=== PATIENT | male | born 1970 | race Caucasian/White ===

== ENCOUNTER 2017-06-14 13:08 | Emergency (ER) | payer OTHER ==
[2017-06-14 13:17] VITALS: BMI 38.0
[2017-06-14] MEDS ORDERED: SODIUM CHLORIDE 1,000 ML IV STA (14:05)
--- NOTE | 2017-06-14 14:12 | PDOC ---
History of Present Illness - General Chief Complaint: Pain Stated Complaint: PAIN/ LT SIDE, ABD Time Seen by Provider: 06/14/17 13:39 History Source: Patient - History of Present Illness Initial Comments: 06/14/17 14:11 47m with h/o GERD presents to the ED for non-radiating LLQ abdominal pain that started a week ago associated with brown urine that cleared up after drinking fluids. 4 days ago the LLQ pain resumed and continued on and off until he presented to the ER. Patient is currently pain free with clear urine. 06/14/17 14:29 Past History - Past Medical History Allergies/Adverse Reactions: Allergies Allergy/AdvReac Type Severity Reaction Status Date / Time Penicillins Allergy Verified 06/14/17 13:17 Home Medications: Ambulatory Orders Acetaminophen [Tylenol] 650 mg PO Q4H PRN #20 tablet 06/14/17 Oxycodone HCl 5 mg PO Q6H PRN #15 tablet MDD 4 06/14/17 Tamsulosin HCl [Flomax] 0.4 mg PO DAILY #14 cap.er.24h 06/14/17 COPD: No GI Disorders: Yes (REFLUX.) - Suicide/Smoking/Psychosocial Hx Smoking History: Never smoked Hx Alcohol Use: No Drug/Substance Use Hx: No Substance Use Type: None Review of Systems - Review of Systems Able to Perform ROS?: Yes Is the patient limited [place]ian proficient: No Constitutional: No: Symptoms Reported HEENTM: No: Symptoms Reported Respiratory: No: Symptoms reported Cardiac (ROS): No: Symptoms Reported ABD/GI: Yes: See HPI : Yes: See HPI. No: Dysuria, Discharge, Frequency Musculoskeletal: No: Symptoms Reported Integumentary: No: Symptoms Reported Neurological: No: Symptoms reported All Other Systems: Reviewed and Negative *Physical Exam - Vital Signs Last Vital Signs Temp Pulse Resp BP Pulse Ox 97.6 F 95 H 20 155/102 95 06/14/17 13:14 06/14/17 13:14 06/14/17 13:14 06/14/17 13:14 06/14/17 13:14 - Physical Exam General Appearance: Yes: Nourished, Appropriately Dressed. No: Apparent Distress HEENT: positive: EOMI, PETAR, Normal ENT Inspection. negative: Scleral Icterus ( R), Scleral Icterus (L) Neck: negative: Tender Respiratory/Chest: positive: Lungs Clear, Normal Breath Sounds. negative: Chest Tender, Respiratory Distress Cardiovascular: positive: Regular Rhythm, Regular Rate, S1, S2 Gastrointestinal/Abdominal: positive: Normal Bowel Sounds, Soft, Protuberent. negative: Tender Musculoskeletal: positive: Normal Inspection Extremity: positive: Normal Capillary Refill, Normal Inspection Integumentary: positive: Normal Color, Dry, Warm Neurologic: positive: Fully Oriented, Alert, Normal Mood/Affect, Normal Response ED Treatment Course - LABORATORY CBC & Chemistry Diagram: 06/14/17 14:15 06/14/17 14:15 Medical Decision Making - Medical Decision Making 06/14/17 14:39 47 with LLQ pain and episodes dark urine. Biliary etiology vs diverticulitis. Ct abdomen with IV contrast pending 06/14/17 14:40 *DC/Admit/Observation/Transfer Diagnosis at time of Disposition: Kidney stone, Elevated serum creatinine - Discharge Dispostion Disposition: HOME Condition at time of disposition: Improved Admit: No - Prescriptions Prescriptions: Acetaminophen [Tylenol] 650 mg PO Q4H PRN #20 tablet PRN Reason: Pain Oxycodone HCl 5 mg PO Q6H PRN #15 tablet MDD 4 PRN Reason: Severe Pain Tamsulosin HCl [Flomax] 0.4 mg PO DAILY #14 cap.er.24h - Referrals Referrals: Jakob Lundberg MD [Staff Physician] - Renetta Haley [Staff Physician] - Rigo Tee MD [Staff Physician] - Sukhdeep Bajwa MD [Primary Care Provider] - Jose Hernandez MD [Staff Physician] - Ene Sales MD [Staff Physician] - Santo Baron MD [Staff Physician] - Adriana Lieberman MD [Staff Physician] - - Patient Instructions Printed Discharge Instructions: DI for Kidney Stones Additional Instructions: Your CT scan shows a kidney stone on the left side. Most of the times these pass, but occasionally, they do not. If you have persistent, excruciating pain, please return to the ER. Your kidney function is elevated (Cr 1.8). Please make an appointment with the kidney doctor, urologist, and a primary care physician. Drink plenty of fluids and rest. - Post Discharge Activity
[2017-06-14 14:30] LABS: BASO % 0.6 % (0-2.0); HEMATOCRIT 43.1 % (35.4-49); HEMOGLOBIN 14.1 GM/dL (11.7-16.9); LYMPH % 17.7 % (8-40); MCH 28.9 pg (25.7-33.7); MCHC 32.6 g/dl (32.0-35.9); MEAN CELL VOLUME 88.7 fl (80-96); MEAN PLT VOLUME 9.9 fl (7.5-11.1); MONO % 8.7 % (3.8-10.2); PLATELET COUNT 183 K/MM3 (134-434); RBC 4.86 M/mm3 (4.00-5.60); RDW 14.1 % (11.9-15.9); WHITE BLOOD COUNT 9.1 K/mm3 (4.0-10.0)
[2017-06-14 14:35] LABS: URINE APPEARANCE CLEAR; URINE BILIRUBIN NEGATIVE (NEGATIVE); URINE BLOOD NEGATIVE (NEGATIVE); URINE COLOR LTYELLOW; URINE GLUCOSE (UA) NEGATIVE (NEGATIVE); URINE KETONE NEGATIVE (NEGATIVE); URINE LEUK ESTERASE NEGATIVE (NEGATIVE); URINE NITRITE NEGATIVE (NEGATIVE); URINE PROTEIN NEGATIVE (NEGATIVE); URINE UROBILINOGEN NEGATIVE mg/dL (0.2-1.0)
--- NOTE | 2017-06-14 14:40 | PDOC ---
Attending Attestation - Resident Resident Name: Garland Stone - ED Attending Attestation I have performed the following: I have examined & evaluated the patient, The case was reviewed & discussed with the resident, I agree w/resident's findings & plan, Exceptions are as noted - HPI HPI: 06/14/17 14:39 47-year-old male with past medical history of GERD presents with left lower quadrant pain since this morning. Patient reports that it was a strong leg pain with no radiation. Denies dysuria, diarrhea or fevers or chills. Stated a similar incidences one month ago where he had dark urine and pain that resolved over time. Never had a colonoscopy. Came to the ED for further evaluation - Physicial Exam PE: 06/14/17 14:40 GENERAL: Awake, alert, and fully oriented, in no acute distress. HEAD: No signs of trauma EYES: PERRLA, EOMI, sclera anicteric, conjunctiva clear ENT: Auricles normal inspection, hearing grossly normal, nares patent, oropharynx clear without exudates. NECK: Normal ROM, supple ABDOMEN: Soft, nontender, normoactive bowel sounds. No guarding, no rebound. No masses EXTREMITIES: Normal range of motion, no edema. No clubbing or cyanosis. No cords, erythema, or tenderness NEUROLOGICAL: Cranial nerves II through XII grossly intact. Normal speech, normal gait SKIN: Warm, Dry, normal turgor, no rashes or lesions noted. - Medical Decision Making 06/14/17 14:40 Vital Signs Temp Pulse Resp BP Pulse Ox 97.6 F 95 H 20 155/102 95 06/14/17 13:14 06/14/17 13:14 06/14/17 13:14 06/14/17 13:14 06/14/17 13:14 I suspect the patient most likely had diverticulitis. Given the reoccurrence of the pain. We'll obtain a CT scan abdomen pelvis and labs. 06/14/17 16:06 CBC, BMP 06/14/17 14:15 06/14/17 14:15 CMP Sodium 141 mmol/L (136-145) 06/14/17 14:15 Potassium 4.1 mmol/L (3.5-5.1) 06/14/17 14:15 Chloride 105 mmol/L (98-107) 06/14/17 14:15 Carbon Dioxide 26 mmol/L (21-32) 06/14/17 14:15 Anion Gap 10 (8-16) 06/14/17 14:15 BUN 23 mg/dL (7-18) H 06/14/17 14:15 Creatinine 1.8 mg/dL (0.7-1.3) H 06/14/17 14:15 Creat Clearance w eGFR 40.47 (>60) 06/14/17 14:15 Random Glucose 85 mg/dL (74-106) 06/14/17 14:15 Calcium 8.6 mg/dL (8.5-10.1) 06/14/17 14:15 Total Bilirubin 0.3 mg/dL (0.2-1.0) 06/14/17 14:15 AST 23 U/L (15-37) 06/14/17 14:15 ALT 49 U/L (12-78) 06/14/17 14:15 Alkaline Phosphatase 60 U/L (45-117) 06/14/17 14:15 Creatine Kinase 170 IU/L (39-308) 06/14/17 14:15 Creatine Kinase Index 0.6 % (0.0-5.0) 06/14/17 14:15 CK-MB (CK-2) 1.047 ng/mL (0.5-3.6) 06/14/17 14:15 Total Protein 7.7 g/dl (6.4-8.2) 06/14/17 14:15 Albumin 4.0 g/dl (3.4-5.0) 06/14/17 14:15 Lipase 141 U/L (73-393) 06/14/17 14:15 Urine Test Results Urine Color Ltyellow 06/14/17 14:15 Urine Appearance Clear 06/14/17 14:15 Urine pH 5.0 (5.0-8.0) 06/14/17 14:15 Ur Specific Steger 1.017 (1.001-1.035) 06/14/17 14:15 Urine Protein Negative (NEGATIVE) 06/14/17 14:15 Urine Glucose (UA) Negative (NEGATIVE) 06/14/17 14:15 Urine Ketones Negative (NEGATIVE) 06/14/17 14:15 Urine Blood Negative (NEGATIVE) 06/14/17 14:15 Urine Nitrite Negative (NEGATIVE) 06/14/17 14:15 Urine Bilirubin Negative (NEGATIVE) 06/14/17 14:15 Patient's creatinine 1.8 without other findings. Urinalysis demonstrates no blood or protein. At this time, it is possible that the creatinine is 1.8 may be chronic. However, the patient can be follow-up as an outpatient for further outpatient management. The patient does state he has a doctor he can follow-up with. If he chooses to change doctors, can given him follow-up with our clinic here. We'll inform the patient of these findings. CT scan of the abdomen pelvis pending.
[2017-06-14 14:57] LABS: ANION GAP 10 (8-16); BLOOD UREA NITROGEN 23 mg/dL (7-18); CALCIUM 8.6 mg/dL (8.5-10.1); CHLORIDE 105 mmol/L (98-107); CO2 26 mmol/L (21-32); CREATININE 1.8 mg/dL (0.7-1.3); GLUCOSE,RANDOM 85 mg/dL (74-106); LIPASE 141 U/L (73-393); POTASSIUM 4.1 mmol/L (3.5-5.1); SGOT/AST 23 U/L (15-37); SGPT/ALT 49 U/L (12-78); SODIUM 141 mmol/L (136-145)
[2017-06-14 14:59] LABS: ALK PHOS 60 U/L (45-117); BILIRUBIN,TOTAL 0.3 mg/dL (0.2-1.0); TOT PROT 7.7 g/dl (6.4-8.2)
[2017-06-14] MEDS ORDERED: TAMSULOSIN HCL 0.4 MG CAP.ER.24H (FP) PO ONE (17:11)
--- NOTE | 2017-06-14 17:17 | PDOC ---
*Physical Exam - Vital Signs Last Vital Signs Temp Pulse Resp BP Pulse Ox 98.1 F 83 18 145/89 100 06/14/17 16:29 06/14/17 16:29 06/14/17 16:29 06/14/17 16:29 06/14/17 16:29 ED Treatment Course - LABORATORY CBC & Chemistry Diagram: 06/14/17 14:15 06/14/17 14:15 - ADDITIONAL ORDERS Additional order review: Laboratory Results 06/14/17 06/14/17 14:15 14:15 Sodium 141 Potassium 4.1 Chloride 105 Carbon Dioxide 26 Anion Gap 10 BUN 23 H Creatinine 1.8 H Creat Clearance w eGFR 40.47 Random Glucose 85 Calcium 8.6 Total Bilirubin 0.3 AST 23 ALT 49 Alkaline Phosphatase 60 Creatine Kinase 170 Creatine Kinase Index 0.6 CK-MB (CK-2) 1.047 Total Protein 7.7 Albumin 4.0 Lipase 141 Urine Color Ltyellow Urine Appearance Clear Urine pH 5.0 Ur Specific Rodman 1.017 Urine Protein Negative Urine Glucose (UA) Negative Urine Ketones Negative Urine Blood Negative Urine Nitrite Negative Urine Bilirubin Negative Urine Urobilinogen Negative 06/14/17 14:15 RBC 4.86 MCV 88.7 MCHC 32.6 RDW 14.1 MPV 9.9 Neutrophils % 72.0 Lymphocytes % 17.7 Monocytes % 8.7 Eosinophils % 1.0 Basophils % 0.6 - Medications Given in the ED: ED Medications Discontinued Medications Generic Name Dose Route Start Last Admin Trade Name Freq PRN Reason Stop Dose Admin Sodium Chloride 1,000 mls @ 1,000 mls/hr 06/14/17 14:05 06/14/17 14:45 Normal Saline - IV 06/14/17 15:04 1,000 mls/hr ASDIR STA Administration Medical Decision Making - Medical Decision Making 06/14/17 17:09 CAT scan CAT scan of the abdomen pelvis demonstrates a 5 x 7 mm-year-old renal colic with some mild hydronephrosis. However, urinalysis demonstrates no infection at this time. Labs demonstrated creatinine of 1.8. I instructed the patient that he should follow-up with renal and urology. We'll give him doctors for primary care follow-up. As well. I should the patient that he will need his blood test repeated as this could potentially be from kidney stones or potentially chronic kidney disease. A copy the results were given to the patient. The patient has no pain and is satisfied with the care. We'll discharge him a Flomax and pain medication. I discussed the physical exam findings, ancillary test results and final diagnoses with the patient. I answered all of the patient's questions. The patient was satisfied with the care received and felt comfortable with the discharge plan and treatment plan. The patient will call their primary care physician within 24 hours to arrange follow-up and will return to the Emergency Department with any new, persistant or worsening symptoms. *DC/Admit/Observation/Transfer Diagnosis at time of Disposition: Kidney stone, Elevated serum creatinine - Discharge Dispostion Disposition: HOME Condition at time of disposition: Improved Admit: No - Prescriptions Prescriptions: Acetaminophen [Tylenol] 650 mg PO Q4H PRN #20 tablet PRN Reason: Pain Oxycodone HCl 5 mg PO Q6H PRN #15 tablet MDD 4 PRN Reason: Severe Pain Tamsulosin HCl [Flomax] 0.4 mg PO DAILY #14 cap.er.24h - Referrals Referrals: Sukhdeep Bajwa MD [Primary Care Provider] - Rigo Tee MD [Staff Physician] - Jakob Lundberg MD [Staff Physician] - Ene Sales MD [Staff Physician] - Jose Hernandez MD [Staff Physician] - Renetta Haley [Staff Physician] - Santo Baron MD [Staff Physician] - Adriana Lieberman MD [Staff Physician] - - Patient Instructions Printed Discharge Instructions: DI for Kidney Stones Additional Instructions: Your CT scan shows a kidney stone on the left side. Most of the times these pass, but occasionally, they do not. If you have persistent, excruciating pain, please return to the ER. Your kidney function is elevated (Cr 1.8). Please make an appointment with the kidney doctor, urologist, and a primary care physician. Drink plenty of fluids and rest. - Post Discharge Activity
[2017-06-14 17:30] VITALS: BP 155/97; PULSE 82; TEMP 97.8
== END 2017-06-14 17:31 | disposition home or self-care (01) ==
LOC: JER 13:08
PROC: 3E0337Z Introduction of Electrolytic and Water Balance Substance into Peripheral Vein, Percutaneous Approach (ICD-10-PCS; principal; 2017-06-14)
DX: N13.2 Hydronephrosis with renal and ureteral calculous obstruction (principal); R94.4 Abnormal results of kidney function studies
CPT/HCPCS: 36415; 74176-TC; 80053; 81003; 82550; 82553; 83690; 85025; 87086; 96360; 99284-25